=== PATIENT | male | born 1955 | race Caucasian/White ===

== ENCOUNTER 2018-07-21 22:43 | Emergency (ER) | payer MEDICARE, OTHER ==
[~2018-07-21] VITALS: Ht 177.8 cm; Wt 77.2 kg
[~2018-07-21 22:43] MED LIST: DICL100G15 TOP
[2018-07-21] MEDS ORDERED: acetaminophen 325mg tablet PO ONE (23:45)
[2018-07-21] MEDS ORDERED: ketorolac trometh inj. 60 MG/2 ML VIAL IM ONE (23:45)
[2018-07-21] MEDS ORDERED: triamcinolone acetonide 40mg/ml inj IM ONE (23:45)
[2018-07-21] MEDS ORDERED: ACET-812 PO (23:46)
[2018-07-21] MEDS ORDERED: MELO-100 PO (23:46)
[2018-07-22] MEDS ORDERED: LISI-600 PO (00:12)
[2018-07-22] MEDS ORDERED: lisinopril 10 MG tablet PO ONE (00:15)
[2018-07-22 00:23] VITALS: BP 173/118
== END 2018-07-22 00:31 | disposition home or self-care (01) ==
LOC: ER 22:43
DX: G89.29 Other chronic pain (principal); M25.562 Pain in left knee; I10 Essential (primary) hypertension; M19.90 Unspecified osteoarthritis, unspecified site; F12.90 Cannabis use, unspecified, uncomplicated
CPT/HCPCS: 73564; 96372; 99284; J1885; J3301

== ENCOUNTER 2018-07-30 20:55 | Emergency (ER) | payer MEDICARE, OTHER ==
[~2018-07-30] VITALS: Ht 177.8 cm; Wt 75.8 kg
[~2018-07-30 20:55] MED LIST changes: +ACET-812 PO; +LISI-600 PO; +MELO-100 PO
[2018-07-30] MEDS ORDERED: HYDROcodone/acetaminophen 5mg/325mg tablet PO ONE (21:45)
[2018-07-30] MEDS ORDERED: ketorolac trometh. 30mg/ml inj. IM ONE (21:45)
[2018-07-30 23:28] VITALS: BP 109/62
[2018-07-30] MEDS ORDERED: ACET-2615 PO (23:56)
[2018-07-30] MEDS ORDERED: LISI-600 PO (23:56)
[2018-07-30] MEDS ORDERED: MELO-100 PO (23:56)
== END 2018-07-31 00:28 | disposition home or self-care (01) ==
LOC: ER 20:56
DX: M25.462 Effusion, left knee (principal); G89.29 Other chronic pain; I10 Essential (primary) hypertension; M19.90 Unspecified osteoarthritis, unspecified site; F12.90 Cannabis use, unspecified, uncomplicated; Z98.890 Other specified postprocedural states; Z79.899 Other long term (current) drug therapy
CPT/HCPCS: 20610; 96372; 99284; J1885

== ENCOUNTER 2018-08-02 21:24 | Emergency (ER) | payer MEDICARE, OTHER ==
[~2018-08-02] VITALS: Ht 177.8 cm; Wt 64.5 kg
[~2018-08-02 21:24] MED LIST changes: +ACET-2615 PO
[2018-08-02] MEDS ORDERED: HYDROcodone/acetaminophen 10/325mg tab PO ONE (22:20)
[2018-08-02 22:40] VITALS: BP 175/110
[2018-08-02] MEDS ORDERED: GABA-532 PO (23:22)
[2018-08-02] MEDS ORDERED: LISI-600 PO (23:24)
[2018-08-02] MEDS ORDERED: lisinopril 10 MG tablet PO ONE (23:30)
== END 2018-08-02 23:47 | disposition home or self-care (01) ==
LOC: ER 21:24
DX: S50.311A Abrasion of right elbow, initial encounter (principal); S60.812A Abrasion of left wrist, initial encounter; S00.31XA Abrasion of nose, initial encounter; M25.462 Effusion, left knee; M54.5 Low back pain; G89.29 Other chronic pain; M25.511 Pain in right shoulder; I10 Essential (primary) hypertension; M19.90 Unspecified osteoarthritis, unspecified site; F12.90 Cannabis use, unspecified, uncomplicated; Z98.890 Other specified postprocedural states; Z79.899 Other long term (current) drug therapy; W18.39XA Other fall on same level, initial encounter; Y93.89 Activity, other specified; Y92.89 Other specified places as the place of occurrence of the external cause; Y99.8 Other external cause status
CPT/HCPCS: 73030; 99284

== ENCOUNTER 2018-08-04 23:55 | Emergency (ER) | payer MEDICARE, OTHER ==
[~2018-08-04] VITALS: Ht 167.6 cm; Wt 62.6 kg
[~2018-08-04 23:55] MED LIST changes: +GABA-532 PO
[2018-08-05 00:04] VITALS: BP 194/129
[2018-08-05] MEDS ORDERED: lisinopril 10 MG tablet PO ONE (00:30)
[2018-08-05] MEDS ORDERED: HYDROcodone/acetaminophen 10/325mg tab PO ONE (00:30)
== END 2018-08-05 00:55 | disposition home or self-care (01) ==
LOC: ER 23:55
DX: G89.29 Other chronic pain (principal); M54.5 Low back pain; I10 Essential (primary) hypertension; F12.10 Cannabis abuse, uncomplicated; Z79.899 Other long term (current) drug therapy
CPT/HCPCS: 99283

== ENCOUNTER 2018-10-26 19:11 | Emergency (ER) | payer MEDICARE, OTHER ==
[~2018-10-26] VITALS: Ht 177.8 cm; Wt 60.5 kg
[~2018-10-26 19:11] MED LIST changes: -ACET-2615 PO; -ACET-812 PO; -LISI-600 PO
[2018-10-26 19:13] VITALS: BP 184/119
[2018-10-26] MEDS ORDERED: HYDROcodone/acetaminophen 10/325mg tab PO ONE (20:40)
--- NOTE | 2018-10-26 21:08 | NUR ---
PAGED CHOIR ACCOMPANIST AT [phone]
--- NOTE | 2018-10-26 22:31 | NUR ---
PROVIDER CAME TO THE NURSES STATION REQUESTING PT BE IMMEDIATELY DISCHARGED OUT OF ED DUE TO PATIENT BEING MANIPULATIVE, PT HAS PANTS OFF IN THE ROOM FOR AN ARM EXAM, INSTRUCTED TO GET DRESSED, PT TRYING TO BE MANIPULATIVE TO STAFF, AND ATTEMPTING TO DELAY HIS EXIT OFF PROPERTY.
== END 2018-10-26 23:36 | disposition home or self-care (01) ==
LOC: ER 19:12
DX: M25.522 Pain in left elbow (principal); R60.0 Localized edema; R06.2 Wheezing; L08.89 Other specified local infections of the skin and subcutaneous tissue; M19.90 Unspecified osteoarthritis, unspecified site; I10 Essential (primary) hypertension; G89.29 Other chronic pain; F17.200 Nicotine dependence, unspecified, uncomplicated; F12.90 Cannabis use, unspecified, uncomplicated; Z79.899 Other long term (current) drug therapy
CPT/HCPCS: 29105; 99283

== ENCOUNTER 2018-12-04 20:23 | Emergency (ER) | payer MEDICARE, OTHER ==
[~2018-12-04] VITALS: Ht 177.8 cm; Wt 85.0 kg
[2018-12-04 20:57] VITALS: BP 196/119
[2018-12-04] MEDS ORDERED: HYDROcodone/acetaminophen 5mg/325mg tablet PO ONE (23:10)
--- NOTE | 2018-12-04 23:18 | NUR ---
PT TRANSPORTED TO X-RAY VIA W/C BY [facility].
[2018-12-05 00:02] LABS: BASOPHILS % (AUTO) 0.5 % (0-1); EOSINOPHILS # (AUTO) 0.3 X10'3 (0-0.9); EOSINOPHILS % (AUTO) 3.2 % (0-6); HEMATOCRIT 35.8 % (42.0-52.0); HEMOGLOBIN 11.9 g/dl (14.0-17.9); LYMPHOCYTES # (AUTO) 1.2 X10'3 (1.1-4.8); LYMPHOCYTES % (AUTO) 13.4 % (21-51); MEAN CORPUSCULAR HEMOGLOBIN 31.5 PG (27.0-31.0); MEAN CORPUSCULAR HGB CONC 33.4 g/dL (33.0-36.5); MEAN CORPUSCULAR VOLUME 94.4 FL (78-98); MEAN PLATELET VOLUME 8.8 FL (7.4-10.4); MONOCYTES # (AUTO) 0.7 X10'3 (0-0.9); MONOCYTES % (AUTO) 7.4 % (2-12); NEUTROPHILS # (AUTO) 6.6 X10'3 (1.8-7.7); NEUTROPHILS % (AUTO) 75.5 % (42-75); PLATELET COUNT 228 X10'3 (140-440); RED BLOOD COUNT 3.79 X10'6 (4.70-6.10); RED CELL DISTRIBUTION WIDTH 14.8 % (11.5-14.5); WHITE BLOOD COUNT 8.8 X10'3 (4.5-11.0)
[2018-12-05 00:21] LABS: ALANINE AMINOTRANSFERASE 61 U/L (12-78); ALBUMIN 3.2 G/DL (3.4-5.0); ALBUMIN/GLOBULIN RATIO 0.9 (1.1-1.5); ALKALINE PHOSPHATASE 80 IU/L (46-116); ANION GAP 7 (8-16); ASPARTATE AMINO TRANSFERASE 61 U/L (10-37); BILIRUBIN,TOTAL 0.5 MG/DL (0.1-1.0); BLOOD UREA NITROGEN 13 MG/DL (7-18); BUN/CREATININE RATIO 17.8 (5.4-32.0); CALCIUM 8.6 MG/DL (8.5-10.1); CHLORIDE 105 MMOL/L (99-107); CREATININE 0.73 MG/DL (0.60-1.10); GLUCOSE 125 MG/DL (70-104); POTASSIUM 3.1 MMOL/L (3.5-5.1); SODIUM 141 MMOL/L (135-145); TOTAL CARBON DIOXIDE 29.2 MMOL/L (24-32); TOTAL PROTEIN 6.8 G/DL (6.4-8.2); eGFR > 90 ML/MIN
--- NOTE | 2018-12-05 00:45 | NUR ---
Pt states that pain is down from 13 to 8.5 after Oral. Pt wheeling self around in W/C using legs to propel self. Pt out of room, trying to find bathroom. Pt directed to bathroom and then informed that he will be moved to ED 06 when he's finished. Pt verbalizes understanding. All of pt's belongings moved to ED 06.
[2018-12-05 00:57] LABS: C-REACTIVE PROTEIN 10.27 MG/DL (0.0-0.5)
[2018-12-05] MEDS ORDERED: LIDOcaine 1.5% w/epinephrine 1:200,000 5ml ampul IJ STA (01:17)
[2018-12-05] MEDS ORDERED: LIDOcaine 1% w/epiNEPHrine 1:200,000 30ml vial IJ STA (01:23)
[2018-12-05] MEDS ORDERED: LIDOcaine 1% w/epiNEPHrine 1:200,000 30ml vial IM ONE (01:40)
[2018-12-05] MEDS ORDERED: LIDO IM ONE (01:45)
[2018-12-05 03:39] LABS: CRYSTAL ID, SYN FLD CA PYROPHOSPHATE
[2018-12-05 03:40] LABS: SYNOVIAL FLUID CRYSTALS QT FEW
[2018-12-05] MEDS ORDERED: colchicine 0.6mg tablet PO ONE (03:50)
[2018-12-05] MEDS ORDERED: indomethacin 25mg capsule PO ONE (03:50)
[2018-12-05] MEDS ORDERED: triamcinolone acetonide 40mg/ml inj IM ONE (03:50)
[2018-12-05] MEDS ORDERED: INDO50CA14 PO (03:51)
[2018-12-05] MEDS ORDERED: COLC0.6T69 PO (03:51)
[2018-12-05 04:22] LABS: APPEARANCE,SYNOVIAL FLUID CLOUDY; COLOR,SYNOVIAL FLUID YELLOW; LYMPHOCYTES,SYNOVIAL FLUID 3 % (0-75); MONOCYTES,SYNOVIAL FLUID 20 % (0-0); NEUTROPHILS,SYNOVIAL FLUID 77 % (0-25); SYN RBC 370 /CU MM (0); SYN WBC 29750 /CU MM (0-200)
== END 2018-12-05 04:23 | disposition home or self-care (01) ==
LOC: ER 20:24
DX: M11.262 Other chondrocalcinosis, left knee (principal); I10 Essential (primary) hypertension; M19.90 Unspecified osteoarthritis, unspecified site; G89.29 Other chronic pain; F12.90 Cannabis use, unspecified, uncomplicated; Z98.890 Other specified postprocedural states; Z79.899 Other long term (current) drug therapy
CPT/HCPCS: 20610; 36415; 73560; 80053; 83605; 84145; 85025; 85651; 86140; 87040; 87070; 89051; 89060; 96372; 99284; J3301; J3490